=== PATIENT | female | born 1995 | race Asian ===

== ENCOUNTER 2019-09-07 04:48 | Inpatient (IN) | payer OTHER ==
[2019-09-07] VITALS (28 sets, daily range): BP systolic 111–153; BP diastolic 65–92
[~2019-09-07] VITALS: Ht 162.6 cm; Wt 73.1 kg
[2019-09-07] MEDS ORDERED: PEPC1TAB5 PO (05:31)
[2019-09-07 06:59] LABS: HEMATOCRIT 39.3 % (36.0-47.0); HEMOGLOBIN 12.9 g/dl (12.0-15.5); MEAN CORPUSCULAR HEMOGLOBIN 28.4 pg (27.0-33.0); MEAN CORPUSCULAR HGB CONC 32.8 g/dl (32.0-36.5); MEAN CORPUSCULAR VOLUME 86.4 fl (80.0-96.0); PLATELET COUNT, AUTOMATED 217 10^3/uL (150-450); RED BLOOD COUNT 4.55 10^6/uL (4.00-5.40); WHITE BLOOD COUNT 8.9 10^3/uL (4.0-10.0)
[2019-09-07] MEDS ORDERED: PROMETHAZINE INJ 25 MG/ML VIAL (J2550) IV ONE (08:45)
[2019-09-07] MEDS ORDERED: MORPHINE 4 MG/ML 1ML VIAL/SYRINGE (J2270) IV ONE (08:45)
[2019-09-07] MEDS ORDERED: BUTORPHANOL 2 MG/ML INJ (J0595) IV ONE (10:45)
[2019-09-07] MEDS ORDERED: FENTANYL 2MCG/ML ROPIVACAINE 0.2% IN 0.9% NACL 100ML IVBAG As Ordered ONE (13:57)
[2019-09-07] MEDS ORDERED: REFRIGERATOR IV KEYS XX PRN (14:45)
[2019-09-07] MEDS ORDERED: diphenhydrAMINE 50MG/ML VIAL (J1200) IV PRN (14:45)
[2019-09-07] MEDS ORDERED: ePHEDrine SULFATE 25 MG/5 ML(5MG/ML) SYRINGE IV PRN (14:45)
[2019-09-07] MEDS ORDERED: NALOXONE INJ 0.4MG/1ML VIAL (J2310 PER 1MG) IV PRN (14:45)
[2019-09-07] MEDS ORDERED: EPIDURAL COMMENT XX SCH (14:45)
[2019-09-07] MEDS ORDERED: LACTATED RINGER'S 1000 ML IV PRN (14:45)
[2019-09-07] MEDS ORDERED: EPIDURAL/PCA KEYS XX PRN (14:45)
[2019-09-07] MEDS ORDERED: FENTANYL/ROPIVACAINE/NACL BAG 100 ML EPIDURAL SCH (14:45)
[2019-09-07] MEDS ORDERED: ONDANSETRON 4MG/2ML VIAL IV PRN (14:45)
[2019-09-07] MEDS ORDERED: OXYTOCIN 30 UNITS IN 0.9% NaCl 500ML IV BAG (J2590) As Ordered ONE (17:07)
[2019-09-07] MEDS ORDERED: OXYTOCIN DRIP 30 UNITS in IV 1 EA IV SCH (17:15)
--- NOTE | 2019-09-07 17:23 | IPNPDOC ---
Text Note Date of Service The patient was seen on 09/07/19. NOTE patient is a 24 yo @ 39+3wks admitted for PROM at 0350 this AM. masters bulb was placed and patient received IV pain medication followed by epidural. masters bulb still in place. she continues to desire to TOLAC. She was counseled during clinic and on admission regarding option of repeat section vs. TOLAC. vitals: normal NAD fht: 140/mod sanjuanita/pos accel/no decel toco: ctx q 10mins a/p patient not in labor. start pit. arom as indicated. Le, DO VS,Fishbone, I+O VS, Fishbone, I+O Laboratory Tests 09/07/19 06:48 Vital Signs Date Time Temp Pulse Resp B/P (MAP) Pulse Ox O2 Delivery O2 Flow Rate FiO2 09/07/19 14:46 99 114/65 (81) 09/07/19 13:35 18 09/07/19 10:21 98.7 09/07/19 08:52 Room Air LIZZETTE AIKEN DO September 07, 2019 17:23
--- NOTE | 2019-09-07 21:27 | IPNPDOC ---
Text Note Date of Service The patient was seen on 09/07/19. NOTE patient with epidural for pain management. pit: 6mU/min vitals: normal fht: 150/min-mod sanjuanita/pos accel/variable vs. early decels toco: ctx q 3mins. masters bulb on out and on bed ce: 6-8 (during contractions)/90/0, IUPC placed. a/p patient in active labor with variable decels. Discussed with patient regarding amioinfusion. If amioninfusion does not help with resolving variable decels and patient till remote from delivery, a repeat section is recommended. patient expresses understanding. bolus 300cc follow by 250cc/hr of NS with adequate uterine return of fluids. Serene, VS,Gary, I+O VS, Naomiee, I+O Laboratory Tests 09/07/19 06:48 Vital Signs Date Time Temp Pulse Resp B/P (MAP) Pulse Ox O2 Delivery O2 Flow Rate FiO2 09/07/19 19:54 97.7 114 16 122/78 (93) 09/07/19 08:52 Room Air LIZZETTE AIKEN DO September 07, 2019 21:27
[2019-09-08] VITALS (10 sets, daily range): BP systolic 104–146; BP diastolic 56–77
--- NOTE | 2019-09-08 00:06 | IPNPDOC ---
Text Note Date of Service The patient was seen on 09/08/19. NOTE patient comfortable with epidural. pit: 8mU/min fht: 150/min-mod sanjuanita/pos accel/occasional decel toco: ctx q2-5mins ce: c/c/+3 a/p patient in second stage of labor. start puhing. VS,Fishbone, I+O VS, Fishbone, I+O Laboratory Tests 09/07/19 06:48 Vital Signs Date Time Temp Pulse Resp B/P (MAP) Pulse Ox O2 Delivery O2 Flow Rate FiO2 09/07/19 23:15 109 123/73 (90) 09/07/19 22:31 98.8 18 09/07/19 08:52 Room Air I&O- Last 24 Hours up to 6 AM 09/08/19 06:00 Intake Total 1271 ml Output Total 1550 ml Balance -279 ml LIZZETTE AIKEN DO September 08, 2019 00:06
[2019-09-08] MEDS ORDERED: OXYTOCIN DRIP 30 UNITS in IV 1 EA IV SCH (01:20)
--- NOTE | 2019-09-08 01:27 | DNPDOC ---
[facility] Delivery Note Delivery Note DATE OF DELIVERY: 09/08/2019 PREDELIVERY DIAGNOSIS: 39+6/7 weeks' gestation PROM history of prior delivery POST DELIVERY DIAGNOSIS: PROCEDURE: Vaginal after section FURNACE PROCESS SUPERVISOR: Dr. arnaud cast ANESTHESIA: epidural ESTIMATED BLOOD LOSS: 250mL. FINDINGS: 6 pound 3 ounce male , Score 6/8, nucha cord x 1. DELIVERY SUMMARY: With good maternal effort baby delivered OA, restituted ROT, tight nuchal cord palpated. Anterior shoulder delivered followed by posterior shoulder, body delivered with ease. baby placed on maternal abdomen. Cord allowed to stop pulsating. Cord clamped x 2 and cut by FOB. pitocin bolus started. placenta delivered spontaneously. fundus massaged firm. inspection reveals small first degree lac repaired with one interrupted 3-0 vicryl. baby and mother bonding when I left the room. DO NELLI Cast LUAT N. DO September 08, 2019 01:27
[2019-09-08] MEDS ORDERED: ACETAMINOPHEN TAB 650MG DOSE (2X325MG) PO PRN (01:30)
[2019-09-08] MEDS ORDERED: DIBUCAINE 1% OINTMENT 30GM TOP PRN ×2 (01:30→03:00)
[2019-09-08] MEDS ORDERED: DOCUSATE SODIUM 100 MG CAP PO PRN (01:30)
[2019-09-08] MEDS ORDERED: IBUPROFEN 800 MG TAB PO PRN (01:30)
[2019-09-08] MEDS ORDERED: MEASLES,MUMPS,RUBELLA VACCINE INJ (MMR-II) (90707) SC SCH ×2 (01:30→03:00)
[2019-09-08] MEDS ORDERED: RHOGAM 300 MCG (1500 IU) INJ (J2790) IM SCH ×2 (01:30→03:00)
--- NOTE | 2019-09-08 03:06 | IPNPDOC ---
Text Note Date of Service The patient was seen on 09/08/19. NOTE Patient feeling warm. ruptured membranes since 0350 on 5may. vitals: hr: 120-130's, tmax 103.3 a/p patient with persistent fever immediately with tachycardia. Diagnose patient with presumed chorioamnionitis. start unasyn 3gm for 24 hrs. tylenol for fever. get blood culture if patient remains feverish while on antibiotics. DO YULI Cast,Gary, I+O VS, Gary, I+O Laboratory Tests 09/07/19 06:48 Vital Signs Date Time Temp Pulse Resp B/P (MAP) Pulse Ox O2 Delivery O2 Flow Rate FiO2 09/08/19 02:48 127 121/65 (83) 09/08/19 02:33 102.1 16 09/07/19 08:52 Room Air I&O- Last 24 Hours up to 6 AM 09/08/19 06:00 Intake Total 1271 ml Output Total 1800 ml Balance -529 ml LIZZETTE CAST DO September 08, 2019 03:06
[2019-09-08] MEDS: AMPICILLIN SOD/SULBACTAM SOD 3 GM in D5W MINI-BAG PLUS 100 ML IV SCH ×4 (03:07→21:03)
[2019-09-08] MEDS: ACETAMINOPHEN TAB 650MG DOSE (2X325MG) PO PRN ×2 (03:07→16:00)
[2019-09-08] MEDS ORDERED: PRENATAL VITAMINS CHEWABLE TABLET PO SCH (09:00)
[2019-09-08] MEDS: PRENATAL VITAMINS CHEWABLE TABLET PO SCH (10:03)
[2019-09-08] MEDS: IBUPROFEN 800 MG TAB PO PRN (11:59)
[2019-09-08] MEDS: DOCUSATE SODIUM 100 MG CAP PO PRN (21:04)
[2019-09-09] MEDS: IBUPROFEN 800 MG TAB PO PRN ×2 (03:07→12:15)
[2019-09-09 06:00] VITALS: BP 118/56
[2019-09-09] MEDS: PRENATAL VITAMINS CHEWABLE TABLET PO SCH (09:11)
[2019-09-09] MEDS: ACETAMINOPHEN TAB 650MG DOSE (2X325MG) PO PRN (09:12)
[2019-09-09] MEDS ORDERED: DIBU10OI TOP (10:31)
[2019-09-09] MEDS ORDERED: IBUP80TA PO (10:31)
[2019-09-09] MEDS ORDERED: ACET1TAB55 PO (10:31)
[2019-09-09] MEDS ORDERED: DOCU100C16 PO (10:31)
--- NOTE | 2019-09-09 11:14 | IPNPDOC ---
Progress Note Date of Service: September 09, 2019 Day#: 1 Progress Note SUBJECT: Patient is a 24-year-old 2 now Para 2 status post uncomplicated spontaneous vaginal delivery without post vaginal laceration and repair c/b endometritis, doing well day # 1. She has been ambulating, voiding spontaneously without issue and tolerating regular diet. Breast feeding without issue. Reports lochia is like a normal period. Patient is ambulating well. Reports some cramping with . Denies any pain. OBJECTIVE: VITAL SIGNS: Within normal limits, afebrile. GENERAL: No acute distress HEENT: MMM BREAST: Nontender, no erythema CARDIOVASCULAR EXAMINATION: RRR RESPIRATORY EXAMINATION: Bilaterally clear ABDOMINAL EXAMINATION: Soft, appropriate tenderness, nondistended, fundus -2 PERINEUM: Intact, minimal lochia EXTREMITIES: no edema, nontender ASSESSMENT: Patient is a 24-year-old 2 now Para 2 status post uncomplicated spontaneous vaginal delivery without post vaginal laceration and repair c/b endometritis, doing well day # 1. Vitals within normal limits, afebrile, hemodynamically stable with no evidence of persistent infection. PLAN: 1. Discontinue Unasyn and continue to monitor. 2. Tylenol and Motrin for pain. 3. Encourage breast feeding and ambulation. VS, I&O, 24H, Fishbone Vital Signs/I&O Vital Signs Date Time Temp Pulse Resp B/P (MAP) Pulse Ox O2 Delivery O2 Flow Rate FiO2 09/09/19 06:00 97.1 101 18 118/56 (76) 09/08/19 06:00 96 Room Air I&O- Last 24 Hours up to 6 AM 09/09/19 06:00 Intake Total 100 ml Balance 100 ml Shiloh Oquendo MD September 09, 2019 10:25
[2019-09-09 18:00] VITALS: BP 126/76
[2019-09-10] MEDS: IBUPROFEN 800 MG TAB PO PRN ×2 (00:45→10:09)
[2019-09-10] MEDS: DOCUSATE SODIUM 100 MG CAP PO PRN (00:50)
--- NOTE | 2019-09-10 07:14 | DS.PDOC ---
Discharge Summary General Date of Admission September 07, 2019 at 06:13 Date of Discharge 09/10/2019 Discharge Summary PROCEDURES PERFORMED DURING STAY: None. ADMITTING DIAGNOSES: 1. Term 2. H/o previous section DISCHARGE DIAGNOSES: 1. Term 2. H/o previous section 3. Treated endometritis COMPLICATIONS/CHIEF COMPLAINT: Labor. HISTORY OF PRESENT ILLNESS: see H&P HOSPITAL COURSE: Patient had been admitted for labor and had a successful . had a fever of 102F and treated 24hr with Unasyn with regression of fever. She was then monitored for another 24hr while being afebrile. Bleeding like menses. Tolerating diet. Passing flatus. Able to ambulate. Pain tolerable with pain medications. Urinating without difficulty. DISCHARGE MEDICATIONS: Please see below. ALLERGIES: Please see below. PHYSICAL EXAMINATION ON DISCHARGE: VITAL SIGNS: Please see below. GENERAL: No acute distress HEENT: MMM BREAST: Nontender, no erythema CARDIOVASCULAR EXAMINATION: RRR RESPIRATORY EXAMINATION: Bilaterally clear ABDOMINAL EXAMINATION: Soft, appropriate tenderness, nondistended, fundus -2 EXTREMITIES: no edema, nontender LABORATORY DATA: Please see below. IMAGING: none PROGNOSIS: Good ACTIVITY: Pelvic rest. DIET: Regular DISCHARGE PLAN: Home DISPOSITION: . DISCHARGE INSTRUCTIONS: 1. See attached. ITEMS TO FOLLOWUP ON ON OUTPATIENT: 1. 6wks in clinic. DISCHARGE CONDITION: Stable. TIME SPENT ON DISCHARGE: Greater than 10 minutes. Vital Signs/I&Os Vital Signs Date Time Temp Pulse Resp B/P (MAP) Pulse Ox O2 Delivery O2 Flow Rate FiO2 09/09/19 06:00 97.1 101 18 118/56 (76) 09/08/19 06:00 96 Room Air I&O- Last 24 Hours up to 6 AM 09/09/19 06:00 Intake Total 100 ml Balance 100 ml Discharge Medications Scheduled Famotidine (Pepcid) 20 Mg Tablet, 20 MG PO DAILY, (Reported) Scheduled PRN Acetaminophen (Acetaminophen) 325 Mg Tablet, 650 MG PO Q4HP PRN for fever Dibucaine (Dibucaine) 28 Gm Oint...g., 0 DOSE TOP Q4HP PRN for PAIN Docusate Sodium (Docusate Sodium) 100 Mg Capsule, 100 MG PO QHSP PRN for CONSTIPATION Ibuprofen (Ibuprofen) 800 Mg Tablet, 800 MG PO Q8HP PRN for pain Allergies Coded Allergies: No Known Allergies (Unverified , 09/07/19) Shiloh Oquendo MD September 09, 2019 10:30
--- NOTE | 2019-09-10 07:14 | IPNPDOC ---
Progress Note Date of Service: September 10, 2019 Day#: 2 Progress Note SUBJECT: Patient is a 24-year-old 2 now Para 2 status post uncomplicated spontaneous vaginal delivery without post vaginal laceration and repair c/b endometritis, doing well day # 2. She has been ambulating, voiding spontaneously without issue and tolerating regular diet. Breast feeding without issue. Reports lochia is like a normal period. Patient is ambulating well. Reports some cramping. Minimal pain at suture site. OBJECTIVE: VITAL SIGNS: Within normal limits, afebrile. GENERAL: No acute distress HEENT: MMM BREAST: Nontender, no erythema CARDIOVASCULAR EXAMINATION: RRR RESPIRATORY EXAMINATION: Bilaterally clear ABDOMINAL EXAMINATION: Soft, appropriate tenderness, nondistended, fundus -2 PERINEUM: Intact, minimal lochia EXTREMITIES: no edema, nontender ASSESSMENT: Patient is a 24-year-old 2 now Para 2 status post uncomplicated spontaneous vaginal delivery without post vaginal laceration and repair c/b endometritis, doing well day # 2. Vitals within normal limits, afebrile, hemodynamically stable with no evidence of persistent infection. PLAN: 1. Discharge to home today. 2. Tylenol and Motrin for pain. 3. Encourage breast feeding and ambulation. 4. Routine PP visit in 6 weeks in clinic. 5. Discussed return precautions at length. VS, I&O, 24H, Fishbone Vital Signs/I&O Vital Signs Date Time Temp Pulse Resp B/P (MAP) Pulse Ox O2 Delivery O2 Flow Rate FiO2 09/09/19 06:00 97.1 101 18 118/56 (76) 09/08/19 06:00 96 Room Air I&O- Last 24 Hours up to 6 AM 09/09/19 06:00 Intake Total 100 ml Balance 100 ml Shiloh Oquendo MD September 09, 2019 10:26
[2019-09-10 07:15] VITALS: BP 117/61
[2019-09-10] MEDS: PRENATAL VITAMINS CHEWABLE TABLET PO SCH (10:09)
== END 2019-09-10 11:05 | disposition home or self-care (01) | DRG 806 ==
LOC: M LDO 04:48 → M LDI 06:13 → M OBS 09-08 04:33
PROVIDERS: ADMIT Obstetrics & Gynecology; ATTEND Obstetrics & Gynecology
PROC: 10E0XZZ Delivery of Products of Conception, External Approach (ICD-10-PCS; principal; 2019-09-08)
PROC: 0HQ9XZZ Repair Perineum Skin, External Approach (ICD-10-PCS; 2019-09-08)
DX: O34.211 Maternal care for low transverse scar from previous cesarean delivery (principal); Z37.0 Single live birth; O86.12 Endometritis following delivery; Z3A.39 39 weeks gestation of pregnancy; O70.0 First degree perineal laceration during delivery; O42.02 Full-term premature rupture of membranes, onset of labor within 24 hours of rupture; O76 Abnormality in fetal heart rate and rhythm complicating labor and delivery